=== PATIENT | female | born 1990 | race Two or more races ===

== ENCOUNTER 2023-10-17 16:10 | Emergency (ER) | payer MEDICAID, OTHER ==
[~2023-10-17] VITALS: Ht 170.2 cm; Wt 61.3 kg
[2023-10-17 17:05] VITALS: BP 140/80; PULSE 111; RESP 18; O2SAT 97
[2023-10-17] MEDS: TETANUS-DIPTH-ACEL PERTUSSIS 0.5ML SYR Tdap IM ONE (17:15)
== END 2023-10-17 17:16 ==
LOC: ER 16:10
DX: S80.812A Abrasion, left lower leg, initial encounter (principal); S40.212A Abrasion of left shoulder, initial encounter; Z02.79 Encounter for issue of other medical certificate; Y04.0XXA Assault by unarmed brawl or fight, initial encounter; Y93.89 Activity, other specified; Y92.096 Garden or yard of other non-institutional residence as the place of occurrence of the external cause; Y99.8 Other external cause status